=== PATIENT | female | born 1995 | race American Indian/Alaskan Native ===

== ENCOUNTER 2019-12-01 20:18 | Emergency (ER) | payer SELFPAY ==
[~2019-12-01] VITALS: Ht 165.1 cm; Wt 120.2 kg
[2019-12-01] MEDS ORDERED: NORCO 5-325 TA1 EACH PO (21:17)
[2019-12-01] MEDS ORDERED: CRUTCH1 EACH MISC (21:20)
== END 2019-12-01 21:43 | disposition home or self-care (01) ==
LOC: ED 20:18
DX: S93.402A Sprain of unspecified ligament of left ankle, initial encounter (principal); X50.9XXA Other and unspecified overexertion or strenuous movements or postures, initial encounter; F17.200 Nicotine dependence, unspecified, uncomplicated; Z88.8 Allergy status to other drugs, medicaments and biological substances; Z88.2 Allergy status to sulfonamides
CPT/HCPCS: 73610; 99283-25